=== PATIENT | female | born 1940 | race Caucasian/White ===

== ENCOUNTER 2023-08-26 13:26 | Emergency (ER) | payer MEDICARE, MEDICAID ==
[~2023-08-26] VITALS: Ht 154.9 cm; Wt 83.0 kg
[2023-08-26 13:30] VITALS: TEMP 98.6
[2023-08-26 17:02] LABS: BASOPHILS % (AUTO) 0.9 % (0-1); EOSINOPHILS % (AUTO) 0.9 % (0-6); HEMATOCRIT 35.9 % (35.0-45.0); HEMOGLOBIN 12.4 g/dl (12.0-16.0); LYMPHOCYTES # (AUTO) 0.5 X10'3 (1.1-4.8); MEAN CORPUSCULAR HEMOGLOBIN 36.8 PG (27.0-31.0); MEAN CORPUSCULAR HGB CONC 34.4 g/dL (33.0-36.5); MEAN CORPUSCULAR VOLUME 106.8 FL (78-98); MEAN PLATELET VOLUME 6.8 FL (7.4-10.4); MONOCYTES # (AUTO) 0.3 X10'3 (0-0.9); MONOCYTES % (AUTO) 5.8 % (2-12); NEUTROPHILS # (AUTO) 4.2 X10'3 (1.8-7.7); NEUTROPHILS % (AUTO) 82.4 % (42-75); PLATELET COUNT 432 X10'3 (140-440); RED BLOOD COUNT 3.36 X10'6 (4.20-5.60); WHITE BLOOD COUNT 5.1 X10'3 (4.5-11.0)
[2023-08-26 17:18] LABS: ALANINE AMINOTRANSFERASE 19 U/L (12-78); ALKALINE PHOSPHATASE 64 IU/L (46-116); ANION GAP 3 (8-16); ASPARTATE AMINO TRANSFERASE 22 U/L (10-37); BILIRUBIN,TOTAL 0.4 MG/DL (0.1-1.0); BLOOD UREA NITROGEN 18 MG/DL (7-18); BUN/CREATININE RATIO 28.6 (10.0-20.0); CALCIUM 8.6 MG/DL (8.5-10.1); CHLORIDE 98 MMOL/L (99-107); CREATININE 0.63 MG/DL (0.40-0.90); GLUCOSE 102 MG/DL (70-104); LIPASE 37 U/L (16-77); POTASSIUM 4.3 MMOL/L (3.5-5.1); SODIUM 130 MMOL/L (135-145); TOTAL CARBON DIOXIDE 29.3 MMOL/L (24-32); eCRCL 51 ML/MIN; eGFR 90 ML/MIN
[2023-08-26] MEDS ORDERED: normal saline 1000ml 1,000 ML IV ONE (18:10)
[2023-08-26] MEDS ORDERED: MAGN296S89 PO (18:26)
[2023-08-26 19:07] VITALS: BP 151/76; PULSE 70; RESP 15; O2SAT 97
== END 2023-08-26 19:46 | disposition home or self-care (01) ==
LOC: ER 13:27
DX: K59.00 Constipation, unspecified (principal)
CPT/HCPCS: 36415; 80053; 83690; 85025; 96360; 99283; J7030

== ENCOUNTER 2024-03-10 16:08 | Outpatient (CLI) | payer MEDICARE, MEDICAID ==
[~2024-03-10 16:08] MED LIST: HYDR-3964 PO; LEVO750T68 PO
[2024-03-10 16:43] LABS: BASOPHILS % (AUTO) 0.4 % (0-1); EOSINOPHILS % (AUTO) 0.6 % (0-6); HEMATOCRIT 26.9 % (35.0-45.0); HEMOGLOBIN 8.9 g/dl (12.0-16.0); LYMPHOCYTES # (AUTO) 0.5 X10'3 (1.1-4.8); LYMPHOCYTES % (AUTO) 7.6 % (21-51); MEAN CORPUSCULAR HEMOGLOBIN 30.3 PG (27.0-31.0); MEAN PLATELET VOLUME 6.3 FL (7.4-10.4); MONOCYTES # (AUTO) 0.4 X10'3 (0-0.9); NEUTROPHILS # (AUTO) 5.2 X10'3 (1.8-7.7); NEUTROPHILS % (AUTO) 84.4 % (42-75); PLATELET COUNT 368 X10'3 (140-440); RED BLOOD COUNT 2.92 X10'6 (4.20-5.60); RED CELL DISTRIBUTION WIDTH 20.2 % (11.5-14.5); WHITE BLOOD COUNT 6.2 X10'3 (4.5-11.0)
[2024-03-10 16:47] LABS: ALBUMIN 2.3 G/DL (3.4-5.0); ANION GAP 3 (8-16); BLOOD UREA NITROGEN 13 MG/DL (7-18); BUN/CREATININE RATIO 17.8 (10.0-20.0); CALCIUM 8.2 MG/DL (8.5-10.1); CHLORIDE 103 MMOL/L (99-107); CREATININE 0.73 MG/DL (0.40-0.90); GLUCOSE 113 MG/DL (70-104); POTASSIUM 4.1 MMOL/L (3.5-5.1); SODIUM 138 MMOL/L (135-145); TOTAL CARBON DIOXIDE 32.4 MMOL/L (24-32); eGFR 76 ML/MIN
[2024-03-10 17:17] LABS: ANISOCYTOSIS 3+; PLATELET ESTIMATE NORMAL; POIKILOCYTOSIS FEW
== END 2024-03-10 23:59 | disposition home or self-care (01) ==
LOC: RAD 16:08
PROVIDERS: ATTEND Registered Nurse
DX: D64.9 Anemia, unspecified (principal)
CPT/HCPCS: 36415; 80048; 85008; 85025

== ENCOUNTER 2024-03-27 19:56 | Inpatient (IN) | payer MEDICARE, MEDICAID ==
[~2024-03-27] VITALS: Ht 154.9 cm; Wt 79.0 kg
[2024-03-27 20:34] LABS: BILIRUBIN,URINE NEGATIVE (Neg); CLARITY,URINE CLOUDY (Clear); COLOR,URINE YELLOW (Yellow); GLUCOSE, URINE NEGATIVE (Neg); KETONES,URINE NEGATIVE (Neg); LEUKOCYTE ESTERASE ,URINE LARGE (Neg); NITRITES, URINE NEGATIVE (Neg); OCCULT BLOOD,URINE SMALL (Neg); PH,URINE 7.5 (4.8-8.0); PROTEIN,URINE 30 mg/dl (Neg); UROBILINOGEN,URINE 0.2 E.U/dL (0.2-1.0)
[2024-03-27 20:36] LABS: PRO BRAIN NATRIURETIC PEPTIDE 1375 PG/ML (0-450)
[2024-03-27 20:50] LABS: BASOPHILS # (AUTO) 0.1 X10'3 (0-0.2); BASOPHILS % (AUTO) 0.8 % (0-1); EOSINOPHILS # (AUTO) 0.1 X10'3 (0-0.9); EOSINOPHILS % (AUTO) 0.6 % (0-6); HEMATOCRIT 27.5 % (35.0-45.0); HEMOGLOBIN 8.7 g/dl (12.0-16.0); LYMPHOCYTES # (AUTO) 0.8 X10'3 (1.1-4.8); LYMPHOCYTES % (AUTO) 4.4 % (21-51); MEAN CORPUSCULAR HEMOGLOBIN 28.5 PG (27.0-31.0); MEAN CORPUSCULAR HGB CONC 31.7 g/dL (33.0-36.5); MEAN CORPUSCULAR VOLUME 89.8 FL (78-98); MEAN PLATELET VOLUME 6.8 FL (7.4-10.4); MONOCYTES # (AUTO) 0.8 X10'3 (0-0.9); MONOCYTES % (AUTO) 4.8 % (2-12); NEUTROPHILS # (AUTO) 15.9 X10'3 (1.8-7.7); NEUTROPHILS % (AUTO) 89.4 % (42-75); PLATELET COUNT 517 X10'3 (140-440); RED BLOOD COUNT 3.06 X10'6 (4.20-5.60); RED CELL DISTRIBUTION WIDTH 17.4 % (11.5-14.5); WHITE BLOOD COUNT 17.8 X10'3 (4.5-11.0)
[2024-03-27 20:54] LABS: UA COLLECTION TYPE FOLEY CATH
[2024-03-27 21:00] LABS: BACTERIA,URINE 2+ /HPF (Neg); SQUAMOUS EPITHELIAL CELL,UR FEW /LPF (FEW); TRANSITIONAL EPI CELLS,URINE FEW /HPF; WBC,URINE TNTC /HPF (0-4)
[2024-03-27 21:01] LABS: AMORPHOUS PHOSPHATES 2+; WBC CLUMPS,URINE MODERATE /HPF (NEGATIVE)
[2024-03-27 22:35] LABS: ALANINE AMINOTRANSFERASE 12 U/L (12-78); ALBUMIN 1.8 G/DL (3.4-5.0); ALBUMIN/GLOBULIN RATIO 0.4 (1.1-1.5); ALKALINE PHOSPHATASE 177 IU/L (46-116); ANION GAP 10 (8-16); ASPARTATE AMINO TRANSFERASE 20 U/L (10-37); BILIRUBIN,TOTAL 0.3 MG/DL (0.1-1.0); BLOOD UREA NITROGEN 34 MG/DL (7-18); BUN/CREATININE RATIO 42.5 (10.0-20.0); CALCIUM 8.8 MG/DL (8.5-10.1); CHLORIDE 95 MMOL/L (99-107); GLUCOSE 97 MG/DL (70-104); SODIUM 127 MMOL/L (135-145); TOTAL CARBON DIOXIDE 22.5 MMOL/L (24-32); TOTAL PROTEIN 5.9 G/DL (6.4-8.2); eCRCL 40 ML/MIN; eGFR 69 ML/MIN
[2024-03-27 22:36] LABS: POTASSIUM 5.5 MMOL/L (3.5-5.1)
[2024-03-27] MEDS ORDERED: iohexol 300mg/ml 100ml inj. ONE (22:41)
[2024-03-27] MEDS: CefTRIAXone 2gm/D5W 50ml BAG 50 ML IV ONE (23:44)
[2024-03-27] MEDS: normal saline 1000ml 1,000 ML IV ONE (23:44)
[2024-03-28] MEDS: piperacillin/tazo 3.375gm/50ml 50 ML IV ONE
[2024-03-28] MEDS: acetaminophen 325mg tablet PO ONE (00:49)
[2024-03-28] MEDS ORDERED: ondansetron/PF 4mg/2ml inj IV PRN (01:45)
[2024-03-28] MEDS ORDERED: potassium Cl 40MEQ/1/2NS 520ml 520 ML IV PRN (01:45)
[2024-03-28] MEDS ORDERED: mag hydrox/Alum hydrox/simeth 30ml oral suspension PO PRN (01:45)
[2024-03-28] MEDS ORDERED: potassium Cl 20 mEq SR tablet PO PRN ×2 (01:45)
[2024-03-28] MEDS ORDERED: magnesium sulf-water 4G/100mL 100 ML IV PRN (01:45)
[2024-03-28] MEDS ORDERED: magnesium sulf-water 2g/50mL 50 ML IV PRN (01:45)
[2024-03-28] MEDS ORDERED: acetaminophen 325mg tablet PO PRN (01:45)
[2024-03-28] MEDS ORDERED: magnesium Cl slow-release 64mg tablet PO PRN (01:45)
[2024-03-28] MEDS ORDERED: ONDA-243 PO (02:04)
[2024-03-28] MEDS ORDERED: LISI40TA13 PO (02:04)
[2024-03-28] MEDS ORDERED: HYDR-3965 PO (02:04)
[2024-03-28] MEDS ORDERED: FURO20TA4 PO (02:04)
[2024-03-28] MEDS ORDERED: DOCU-392 PO (02:06)
[2024-03-28] MEDS ORDERED: AMLO10TA13 PO (02:06)
[2024-03-28] MEDS ORDERED: MECL-302 PO (02:06)
[2024-03-28] MEDS ORDERED: METO50TA17 PO (02:07)
[2024-03-28] MEDS: CALCIUM GLUC 1gm/50ml NACL,iso 50 ML IV ONE (02:47)
[2024-03-28] MEDS: normal saline 1000ml 1,000 ML IV SCH (02:47)
[2024-03-28 03:06] LABS: MAGNESIUM 1.8 MG/DL (1.5-2.4); POTASSIUM 4.7 MMOL/L (3.5-5.1)
[2024-03-28] MEDS: K and/or MAG REPLACEMENT MC SCH (07:55)
[2024-03-28] MEDS: enoxaparin 40mg/0.4ml syringe SUBCUT SCH (08:00)
[2024-03-28] MEDS: piperacillin/tazo 3.375gm/50ml 50 ML IV SCH (08:04)
[2024-03-28] MEDS: HYDROcodone/acetaminophen 5mg/325mg tablet PO PRN (10:40)
[2024-03-28] MEDS ORDERED: GABA-530 PO (13:26)
[2024-03-28] MEDS: acetaminophen 325mg tablet PO PRN (14:13)
[2024-03-28 20:00] VITALS: BP 129/61; PULSE 95; RESP 16; TEMP 97.9; O2SAT 94
[2024-03-28] MEDS ORDERED: MULT-1074 PO (20:40)
[2024-03-28] MEDS ORDERED: LISI2.5T14 PO (20:40)
[2024-03-28] MEDS ORDERED: POLY119P2 PO (20:40)
[2024-03-28 22:00] VITALS: BP 135/45; PULSE 109; RESP 18; TEMP 99.2; O2SAT 96
[2024-03-28] MEDS ORDERED: CefTRIAXone/D5W-Rocephin 1gm 50 ML IV SCH (22:00)
[2024-03-29] VITALS (7 sets, daily range): BP systolic 126–157; BP diastolic 51–99; PULSE 73–106; RESP 16–21; TEMP 97.3–98.6; O2SAT 91–97
[2024-03-29 07:18] LABS: ALBUMIN 1.6 G/DL (3.4-5.0); ANION GAP 7 (8-16); BLOOD UREA NITROGEN 16 MG/DL (7-18); BUN/CREATININE RATIO 29.1 (10.0-20.0); CALCIUM 8.4 MG/DL (8.5-10.1); CHLORIDE 104 MMOL/L (99-107); CREATININE 0.55 MG/DL (0.40-0.90); GLUCOSE 83 MG/DL (70-104); MAGNESIUM 1.8 MG/DL (1.5-2.4); PHOSPHORUS 3.8 MG/DL (2.3-4.5); SODIUM 136 MMOL/L (135-145); TOTAL CARBON DIOXIDE 24.6 MMOL/L (24-32); eCRCL 58 ML/MIN; eGFR > 90 ML/MIN
[2024-03-29 07:19] LABS: POTASSIUM 4.6 MMOL/L (3.5-5.1)
[2024-03-29 08:37] LABS: BASOPHILS % (AUTO) 0.2 % (0-1); EOSINOPHILS # (AUTO) 0.1 X10'3 (0-0.9); EOSINOPHILS % (AUTO) 0.9 % (0-6); HEMATOCRIT 24.3 % (35.0-45.0); LYMPHOCYTES # (AUTO) 0.4 X10'3 (1.1-4.8); LYMPHOCYTES % (AUTO) 3.8 % (21-51); MEAN CORPUSCULAR HEMOGLOBIN 29.5 PG (27.0-31.0); MEAN CORPUSCULAR VOLUME 89.2 FL (78-98); MEAN PLATELET VOLUME 6.2 FL (7.4-10.4); MONOCYTES # (AUTO) 0.5 X10'3 (0-0.9); MONOCYTES % (AUTO) 5.2 % (2-12); NEUTROPHILS # (AUTO) 9.2 X10'3 (1.8-7.7); NEUTROPHILS % (AUTO) 89.9 % (42-75); PLATELET COUNT 478 X10'3 (140-440); RED BLOOD COUNT 2.73 X10'6 (4.20-5.60); RED CELL DISTRIBUTION WIDTH 17.5 % (11.5-14.5); WHITE BLOOD COUNT 10.2 X10'3 (4.5-11.0)
[2024-03-29] MEDS: metoprolol tartrate 50mg tablet PO SCH (20:51)
[2024-03-29] MEDS: gabapentin 100mg capsule PO SCH (20:52)
[2024-03-30] VITALS (8 sets, daily range): BP systolic 107–151; BP diastolic 52–57; PULSE 74–83; RESP 13–22; TEMP 97.5–98.4; O2SAT 94–99
[2024-03-30 07:10] LABS: ALBUMIN 1.6 G/DL (3.4-5.0); ANION GAP 7 (8-16); BLOOD UREA NITROGEN 8 MG/DL (7-18); BUN/CREATININE RATIO 14.3 (10.0-20.0); CHLORIDE 104 MMOL/L (99-107); CREATININE 0.56 MG/DL (0.40-0.90); GLUCOSE 91 MG/DL (70-104); MAGNESIUM 1.7 MG/DL (1.5-2.4); SODIUM 138 MMOL/L (135-145); TOTAL CARBON DIOXIDE 26.9 MMOL/L (24-32); eCRCL 57 ML/MIN; eGFR > 90 ML/MIN
[2024-03-30 07:37] LABS: PHOSPHORUS 3.5 MG/DL (2.3-4.5); POTASSIUM 4.5 MMOL/L (3.5-5.1)
[2024-03-30] MEDS: multivitamins, therapeutics tablet PO SCH (07:46)
[2024-03-30] MEDS: amLODIPine 5mg tablet PO SCH (07:46)
[2024-03-30] MEDS: lisinopril 2.5mg tablet PO SCH (07:47)
[2024-03-30 09:23] LABS: BASOPHILS % (AUTO) 0.4 % (0-1); EOSINOPHILS # (AUTO) 0.1 X10'3 (0-0.9); EOSINOPHILS % (AUTO) 0.9 % (0-6); HEMATOCRIT 26.1 % (35.0-45.0); HEMOGLOBIN 8.8 g/dl (12.0-16.0); LYMPHOCYTES # (AUTO) 0.4 X10'3 (1.1-4.8); LYMPHOCYTES % (AUTO) 4.3 % (21-51); MEAN CORPUSCULAR HEMOGLOBIN 29.9 PG (27.0-31.0); MEAN CORPUSCULAR HGB CONC 33.7 g/dL (33.0-36.5); MEAN CORPUSCULAR VOLUME 88.8 FL (78-98); MEAN PLATELET VOLUME 6.3 FL (7.4-10.4); MONOCYTES # (AUTO) 0.4 X10'3 (0-0.9); MONOCYTES % (AUTO) 4.5 % (2-12); NEUTROPHILS # (AUTO) 8.9 X10'3 (1.8-7.7); NEUTROPHILS % (AUTO) 89.9 % (42-75); PLATELET COUNT 517 X10'3 (140-440); RED BLOOD COUNT 2.94 X10'6 (4.20-5.60); RED CELL DISTRIBUTION WIDTH 17.6 % (11.5-14.5); WHITE BLOOD COUNT 9.9 X10'3 (4.5-11.0)
[2024-03-30 09:30] LABS: INR 1.2 INR; PROTHROMBIN TIME 12.7 SECONDS (9.0-12.0)
[2024-03-30] MEDS: docusate sod 100mg capsule PO SCH (20:58)
[2024-03-30] MEDS: sennosides/docusate sodium tablet PO SCH (20:58)
[2024-03-30] MEDS: polyethylene glycol 3350 17gm powd pack PO SCH (20:59)
[2024-03-31] VITALS (7 sets, daily range): BP systolic 128–146; BP diastolic 48–64; PULSE 72–87; RESP 16–19; TEMP 97–98.4; O2SAT 94–98
[2024-03-31 07:46] LABS: INR 1.3 INR; PROTHROMBIN TIME 12.9 SECONDS (9.0-12.0)
[2024-03-31 08:15] LABS: ALBUMIN 1.8 G/DL (3.4-5.0); ANION GAP 6 (8-16); BLOOD UREA NITROGEN 11 MG/DL (7-18); CALCIUM 8.9 MG/DL (8.5-10.1); CHLORIDE 104 MMOL/L (99-107); CREATININE 0.61 MG/DL (0.40-0.90); GLUCOSE 102 MG/DL (70-104); MAGNESIUM 1.7 MG/DL (1.5-2.4); PHOSPHORUS 3.4 MG/DL (2.3-4.5); SODIUM 139 MMOL/L (135-145); eCRCL 53 ML/MIN; eGFR > 90 ML/MIN
[2024-03-31 09:55] LABS: BASOPHILS # (AUTO) 0.1 X10'3 (0-0.2); BASOPHILS % (AUTO) 0.9 % (0-1); EOSINOPHILS # (AUTO) 0.1 X10'3 (0-0.9); EOSINOPHILS % (AUTO) 0.8 % (0-6); HEMATOCRIT 26.4 % (35.0-45.0); HEMOGLOBIN 8.7 g/dl (12.0-16.0); LYMPHOCYTES # (AUTO) 0.5 X10'3 (1.1-4.8); LYMPHOCYTES % (AUTO) 4.8 % (21-51); MEAN CORPUSCULAR HEMOGLOBIN 29.6 PG (27.0-31.0); MEAN CORPUSCULAR VOLUME 89.5 FL (78-98); MEAN PLATELET VOLUME 6.4 FL (7.4-10.4); MONOCYTES # (AUTO) 0.3 X10'3 (0-0.9); MONOCYTES % (AUTO) 3.7 % (2-12); NEUTROPHILS # (AUTO) 8.5 X10'3 (1.8-7.7); NEUTROPHILS % (AUTO) 89.8 % (42-75); PLATELET COUNT 531 X10'3 (140-440); RED BLOOD COUNT 2.95 X10'6 (4.20-5.60); RED CELL DISTRIBUTION WIDTH 17.3 % (11.5-14.5); WHITE BLOOD COUNT 9.4 X10'3 (4.5-11.0)
[2024-04-01 02:00] VITALS: BP 135/45; PULSE 77; RESP 16; TEMP 97.1; O2SAT 96
[2024-04-01 08:00] VITALS: RESP 18; O2SAT 96
[2024-04-01 08:00] LABS: BASOPHILS % (AUTO) 0 % (0-1); EOSINOPHILS # (AUTO) 0.1 X10'3 (0-0.9); EOSINOPHILS % (AUTO) 1.6 % (0-6); HEMATOCRIT 26.1 % (35.0-45.0); HEMOGLOBIN 8.3 g/dl (12.0-16.0); LYMPHOCYTES # (AUTO) 0.6 X10'3 (1.1-4.8); LYMPHOCYTES % (AUTO) 5.8 % (21-51); MEAN CORPUSCULAR HEMOGLOBIN 29.1 PG (27.0-31.0); MEAN CORPUSCULAR VOLUME 91.1 FL (78-98); MEAN PLATELET VOLUME 6.8 FL (7.4-10.4); MONOCYTES # (AUTO) 0.4 X10'3 (0-0.9); MONOCYTES % (AUTO) 3.9 % (2-12); NEUTROPHILS # (AUTO) 8.5 X10'3 (1.8-7.7); NEUTROPHILS % (AUTO) 88.7 % (42-75); PLATELET COUNT 509 X10'3 (140-440); RED BLOOD COUNT 2.86 X10'6 (4.20-5.60); RED CELL DISTRIBUTION WIDTH 17.9 % (11.5-14.5); WHITE BLOOD COUNT 9.5 X10'3 (4.5-11.0)
[2024-04-01 08:07] LABS: INR 1.2 INR
[2024-04-01 08:17] LABS: ALBUMIN 1.7 G/DL (3.4-5.0); ANION GAP 4 (8-16); BLOOD UREA NITROGEN 15 MG/DL (7-18); BUN/CREATININE RATIO 24.6 (10.0-20.0); CALCIUM 8.5 MG/DL (8.5-10.1); CHLORIDE 105 MMOL/L (99-107); CREATININE 0.61 MG/DL (0.40-0.90); GLUCOSE 97 MG/DL (70-104); MAGNESIUM 1.4 MG/DL (1.5-2.4); PHOSPHORUS 3.3 MG/DL (2.3-4.5); POTASSIUM 4.6 MMOL/L (3.5-5.1); SODIUM 138 MMOL/L (135-145); TOTAL CARBON DIOXIDE 29.3 MMOL/L (24-32); eCRCL 53 ML/MIN; eGFR > 90 ML/MIN
[2024-04-01 08:31] VITALS: BP_SYST 143; PULSE 74
[2024-04-01 12:18] VITALS: RESP 18
[2024-04-01] MEDS ORDERED: AMOX-117 PO (14:27)
[2024-04-01] MEDS ORDERED: magnesium oxide 400mg tablet PO ONE (15:30)
== END 2024-04-01 16:30 | disposition home health service (06) | DRG 871 ==
LOC: ER 19:58 → ED HOLD 03-28 01:48 → PCU 3S 03-28 20:36
PROVIDERS: ADMIT Surgery Surgical Critical Care; ATTEND Family Medicine
PROC: BW211ZZ Computerized Tomography (CT Scan) of Abdomen and Pelvis using Low Osmolar Contrast (ICD-10-PCS; principal; 2024-03-27)
DX: A41.9 Sepsis, unspecified organism (principal); G93.41 Metabolic encephalopathy; N39.0 Urinary tract infection, site not specified; E87.1 Hypo-osmolality and hyponatremia; G47.33 Obstructive sleep apnea (adult) (pediatric); N13.9 Obstructive and reflux uropathy, unspecified; R33.9 Retention of urine, unspecified; E78.00 Pure hypercholesterolemia, unspecified; D64.9 Anemia, unspecified; E87.5 Hyperkalemia; I10 Essential (primary) hypertension; Z88.1 Allergy status to other antibiotic agents; Z79.899 Other long term (current) drug therapy; Z85.44 Personal history of malignant neoplasm of other female genital organs; Z92.3 Personal history of irradiation
CPT/HCPCS: 36415; 71045; 74018; 74177; 80048; 80053; 81001; 83605; 83735; 83880; 84100; 84132; 84145; 84484; 85025; 85610; 87040; 87077; 87081; 87088; 87186; 87811; 93005; 96365; 97110; 97116; 97161; 97530; 99285; A6213; A6250; A6449; G0378; J0610; J0696; J1650; J2543; J7030; Q9967

== ENCOUNTER 2024-04-10 12:40 | Emergency (ER) | payer MEDICARE, MEDICAID ==
[~2024-04-10] VITALS: Ht 156.2 cm; Wt 72.7 kg
[~2024-04-10 12:40] MED LIST changes: +AMLO10TA13 PO; +DOCU-392 PO; +GABA-530 PO; -HYDR-3964 PO; +HYDR-3965 PO; -LEVO750T68 PO; +LISI2.5T14 PO; +METO50TA17 PO; +MULT-1074 PO; +POLY119P2 PO
[2024-04-10 12:54] VITALS: TEMP 98
--- NOTE | 2024-04-10 13:34 | NUR ---
present with for vaginal exam. Pt has blood present of thompson and pull up.
[2024-04-10 13:49] LABS: BILIRUBIN,URINE NEGATIVE (Neg); CLARITY,URINE CLOUDY (Clear); COLOR,URINE YELLOW (Yellow); GLUCOSE, URINE NEGATIVE (Neg); KETONES,URINE NEGATIVE (Neg); LEUKOCYTE ESTERASE ,URINE LARGE (Neg); NITRITES, URINE NEGATIVE (Neg); OCCULT BLOOD,URINE MODERATE (Neg); PROTEIN,URINE 100 mg/dl (Neg); UROBILINOGEN,URINE 0.2 E.U/dL (0.2-1.0)
[2024-04-10 13:51] LABS: UA COLLECTION TYPE FOLEY CATH
[2024-04-10 14:02] LABS: ALANINE AMINOTRANSFERASE 9 U/L (12-78); ALBUMIN 1.8 G/DL (3.4-5.0); ALBUMIN/GLOBULIN RATIO 0.5 (1.1-1.5); ALKALINE PHOSPHATASE 82 IU/L (46-116); ANION GAP 6 (8-16); ASPARTATE AMINO TRANSFERASE 11 U/L (10-37); BILIRUBIN,TOTAL 0.3 MG/DL (0.1-1.0); BLOOD UREA NITROGEN 20 MG/DL (7-18); CALCIUM 8.7 MG/DL (8.5-10.1); CHLORIDE 98 MMOL/L (99-107); CREATININE 0.77 MG/DL (0.40-0.90); GLUCOSE 100 MG/DL (70-104); POTASSIUM 4.8 MMOL/L (3.5-5.1); SODIUM 132 MMOL/L (135-145); TOTAL CARBON DIOXIDE 27.6 MMOL/L (24-32); TOTAL PROTEIN 5.4 G/DL (6.4-8.2); eCRCL 43 ML/MIN; eGFR 72 ML/MIN
[2024-04-10 14:05] LABS: BACTERIA,URINE 2+ /HPF (Neg); MUCUS STRANDS NONE SEEN /LPF (Neg); SQUAMOUS EPITHELIAL CELL,UR NONE SEEN /LPF (FEW); WBC CLUMPS,URINE MANY /HPF (NEGATIVE); WBC,URINE TNTC /HPF (0-4)
[2024-04-10 14:53] LABS: BASOPHILS % (AUTO) 0.2 % (0-1); EOSINOPHILS % (AUTO) 0.4 % (0-6); HEMATOCRIT 26.2 % (35.0-45.0); HEMOGLOBIN 8.3 g/dl (12.0-16.0); LYMPHOCYTES # (AUTO) 0.4 X10'3 (1.1-4.8); LYMPHOCYTES % (AUTO) 3.9 % (21-51); MEAN CORPUSCULAR HEMOGLOBIN 28.7 PG (27.0-31.0); MEAN CORPUSCULAR HGB CONC 31.8 g/dL (33.0-36.5); MEAN CORPUSCULAR VOLUME 90.3 FL (78-98); MEAN PLATELET VOLUME 6.8 FL (7.4-10.4); MONOCYTES # (AUTO) 0.6 X10'3 (0-0.9); MONOCYTES % (AUTO) 5.6 % (2-12); NEUTROPHILS # (AUTO) 9.5 X10'3 (1.8-7.7); NEUTROPHILS % (AUTO) 89.9 % (42-75); PLATELET COUNT 494 X10'3 (140-440); RED CELL DISTRIBUTION WIDTH 18.8 % (11.5-14.5); WHITE BLOOD COUNT 10.6 X10'3 (4.5-11.0)
[2024-04-10 15:02] LABS: INR 1.2 INR; PROTHROMBIN TIME 12.3 SECONDS (9.0-12.0)
[2024-04-10 15:47] LABS: ANISOCYTOSIS 2+; PLATELET ESTIMATE INCREASED; POLYCHROMASIA 1+
[2024-04-10 15:48] LABS: BURR CELLS FEW; ELLIPTOCYTES FEW
[2024-04-10] MEDS: cephalexin 500mg capsule PO ONE (16:06)
--- NOTE | 2024-04-10 16:06 | NUR ---
pt daughter at bedside, spoke with about antibiotic. Pt changed, new pull up.
[2024-04-10] MEDS ORDERED: CEFU500T66 PO (16:19)
[2024-04-10] MEDS: cefuroxime axetil 250mg tablet PO ONE (16:40)
[2024-04-10 16:48] VITALS: BP 120/49; PULSE 81; RESP 18; O2SAT 92
== END 2024-04-10 16:40 | disposition home or self-care (01) ==
LOC: ER 12:41
DX: N39.0 Urinary tract infection, site not specified (principal); N93.8 Other specified abnormal uterine and vaginal bleeding; E78.00 Pure hypercholesterolemia, unspecified; I10 Essential (primary) hypertension; Z88.1 Allergy status to other antibiotic agents; Z79.899 Other long term (current) drug therapy
CPT/HCPCS: 36415; 80053; 81001; 85008; 85025; 85610; 87088; 99285; A5200

== ENCOUNTER 2024-04-16 10:46 | Inpatient (IN) | payer MEDICARE, MEDICAID ==
[~2024-04-16] VITALS: Ht 152.4 cm; Wt 75.6 kg
[~2024-04-16 10:46] MED LIST changes: +CEFU500T66 PO
[2024-04-16 12:15] LABS: BILIRUBIN,URINE NEGATIVE (Neg); CLARITY,URINE CLOUDY (Clear); COLOR,URINE YELLOW (Yellow); GLUCOSE, URINE NEGATIVE (Neg); KETONES,URINE NEGATIVE (Neg); LEUKOCYTE ESTERASE ,URINE MODERATE (Neg); NITRITES, URINE NEGATIVE (Neg); OCCULT BLOOD,URINE TRACE-INTACT (Neg); PROTEIN,URINE 100 mg/dl (Neg); UROBILINOGEN,URINE 0.2 E.U/dL (0.2-1.0)
[2024-04-16 12:25] LABS: UA COLLECTION TYPE FOLEY CATH
[2024-04-16 12:26] LABS: BACTERIA,URINE FEW /HPF (Neg); MUCUS STRANDS FEW /LPF (Neg); SQUAMOUS EPITHELIAL CELL,UR NONE SEEN /LPF (FEW); WBC,URINE TNTC /HPF (0-4); YEAST MANY /HPF (NEGATIVE)
[2024-04-16] MEDS ORDERED: CEFU500T66 PO (12:59)
[2024-04-16] MEDS ORDERED: LACT1CAP26 PO (13:01)
[2024-04-16] MEDS ORDERED: MELA5CAP PO (13:02)
[2024-04-16] MEDS ORDERED: HYDR500C2 PO (13:04)
[2024-04-16] MEDS ORDERED: MAGN100T PO (13:04)
[2024-04-16 13:10] LABS: BASOPHILS % (AUTO) 0.4 % (0-1); EOSINOPHILS # (AUTO) 0.1 X10'3 (0-0.9); HEMOGLOBIN 7.4 g/dl (12.0-16.0); LYMPHOCYTES # (AUTO) 0.4 X10'3 (1.1-4.8); MEAN PLATELET VOLUME 6.5 FL (7.4-10.4); RED CELL DISTRIBUTION WIDTH 17.9 % (11.5-14.5)
[2024-04-16 13:12] LABS: EOSINOPHILS % (AUTO) 0.7 % (0-6); HEMATOCRIT 22.8 % (35.0-45.0); LYMPHOCYTES % (AUTO) 3.4 % (21-51); MEAN CORPUSCULAR HEMOGLOBIN 28.8 PG (27.0-31.0); MEAN CORPUSCULAR HGB CONC 32.6 g/dL (33.0-36.5); MEAN CORPUSCULAR VOLUME 88.1 FL (78-98); MONOCYTES # (AUTO) 0.7 X10'3 (0-0.9); MONOCYTES % (AUTO) 5.7 % (2-12); NEUTROPHILS # (AUTO) 11.1 X10'3 (1.8-7.7); NEUTROPHILS % (AUTO) 89.8 % (42-75); PLATELET COUNT 625 X10'3 (140-440); RED BLOOD COUNT 2.59 X10'6 (4.20-5.60); WHITE BLOOD COUNT 12.3 X10'3 (4.5-11.0)
[2024-04-16] MEDS: normal saline 1000ML IV soln IV ONE (13:16)
[2024-04-16] MEDS: CefTRIAXone 2gm/D5W 50ml BAG 50 ML IV ONE (13:16)
[2024-04-16 13:22] LABS: ALBUMIN 1.7 G/DL (3.4-5.0); ANION GAP 8 (8-16); BLOOD UREA NITROGEN 30 MG/DL (7-18); BUN/CREATININE RATIO 37.5 (10.0-20.0); CALCIUM 8.3 MG/DL (8.5-10.1); CHLORIDE 95 MMOL/L (99-107); GLUCOSE 94 MG/DL (70-104); MAGNESIUM 1.8 MG/DL (1.5-2.4); POTASSIUM 5.3 MMOL/L (3.5-5.1); SODIUM 130 MMOL/L (135-145); eCRCL 50 ML/MIN; eGFR 69 ML/MIN
[2024-04-16] MEDS: diphenhydrAMINE 50 mg/ml inj IV ONE (13:48)
[2024-04-16] MEDS: metoclopramide 5 mg/ml inj IV ONE (13:48)
[2024-04-16] MEDS ORDERED: magnesium Cl slow-release 64mg tablet PO PRN (14:30)
[2024-04-16] MEDS ORDERED: potassium Cl 40MEQ/1/2NS 520ml 520 ML IV PRN (14:30)
[2024-04-16] MEDS ORDERED: potassium Cl 20 mEq SR tablet PO PRN ×2 (14:30)
[2024-04-16] MEDS ORDERED: magnesium sulf-water 2g/50mL 50 ML IV PRN (14:30)
[2024-04-16] MEDS ORDERED: magnesium sulf-water 4G/100mL 100 ML IV PRN (14:30)
[2024-04-16] MEDS ORDERED: acetaminophen 650mg rectal suppository RC PRN (14:30)
[2024-04-16] MEDS: CefTRIAXone/D5W-Rocephin 1gm 50 ML IV SCH (15:08)
[2024-04-16] MEDS: normal saline 1000ml 1,000 ML IV SCH (15:23)
[2024-04-16 17:07] LABS: % IRON SATURATION 10 % (11-46); IRON 11 UG/DL (49-151); TOTAL IRON BINDING CAPACITY 112 UG/DL (259-388)
[2024-04-16 18:00] VITALS: BP 140/41; PULSE 94; RESP 13; TEMP 98.4; O2SAT 95
[2024-04-16] MEDS: K and/or MAG REPLACEMENT MC SCH (20:00)
[2024-04-16 22:00] VITALS: BP 132/45; PULSE 98; RESP 16; TEMP 98.1; O2SAT 98
[2024-04-17] VITALS (7 sets, daily range): BP systolic 113–141; BP diastolic 41–53; PULSE 88–100; RESP 14–18; TEMP 97.6–99.3; O2SAT 92–98
[2024-04-17] MEDS: HYDROcodone/acetaminophen 5mg/325mg tablet PO ONE (04:09)
[2024-04-17 06:50] LABS: BASOPHILS # (AUTO) 0.1 X10'3 (0-0.2); BASOPHILS % (AUTO) 0.6 % (0-1); EOSINOPHILS % (AUTO) 0.4 % (0-6); HEMATOCRIT 22.5 % (35.0-45.0); HEMOGLOBIN 7.1 g/dl (12.0-16.0); LYMPHOCYTES # (AUTO) 0.4 X10'3 (1.1-4.8); LYMPHOCYTES % (AUTO) 3.5 % (21-51); MEAN CORPUSCULAR HEMOGLOBIN 27.6 PG (27.0-31.0); MEAN CORPUSCULAR HGB CONC 31.6 g/dL (33.0-36.5); MEAN CORPUSCULAR VOLUME 87.4 FL (78-98); MEAN PLATELET VOLUME 6.3 FL (7.4-10.4); MONOCYTES # (AUTO) 0.7 X10'3 (0-0.9); MONOCYTES % (AUTO) 5.5 % (2-12); NEUTROPHILS # (AUTO) 10.9 X10'3 (1.8-7.7); PLATELET COUNT 567 X10'3 (140-440); RED BLOOD COUNT 2.58 X10'6 (4.20-5.60); WHITE BLOOD COUNT 12.1 X10'3 (4.5-11.0)
[2024-04-17 07:07] LABS: ALBUMIN 1.5 G/DL (3.4-5.0); ANION GAP 10 (8-16); BLOOD UREA NITROGEN 25 MG/DL (7-18); BUN/CREATININE RATIO 35.7 (10.0-20.0); CALCIUM 8.5 MG/DL (8.5-10.1); CHLORIDE 103 MMOL/L (99-107); GLUCOSE 78 MG/DL (70-104); POTASSIUM 4.9 MMOL/L (3.5-5.1); SODIUM 137 MMOL/L (135-145); TOTAL CARBON DIOXIDE 24.4 MMOL/L (24-32); eCRCL 44 ML/MIN; eGFR 80 ML/MIN
[2024-04-17 15:53] LABS: D-DIMER 1.59 MG/L FEU (0-0.50)
[2024-04-17] MEDS ORDERED: iohexol 350MG/ML 100ml bottle IV ONE (17:05)
[2024-04-17] MEDS: HYDROmorphone inj. 0.5 MG/0.5 ML DISP.SYRIN IV PRN (17:28)
[2024-04-17] MEDS: simethicone 80mg chew tab PO PRN (20:11)
[2024-04-18] MEDS ORDERED: HYDROcodone/acetaminophen 5mg/325mg tablet PO PRN (02:30)
[2024-04-18 05:39] LABS: BASOPHILS % (AUTO) 0.4 % (0-1); EOSINOPHILS # (AUTO) 0.1 X10'3 (0-0.9); LYMPHOCYTES # (AUTO) 0.4 X10'3 (1.1-4.8); LYMPHOCYTES % (AUTO) 3.1 % (21-51); MEAN PLATELET VOLUME 6.4 FL (7.4-10.4); MONOCYTES # (AUTO) 0.6 X10'3 (0-0.9); NEUTROPHILS # (AUTO) 11.7 X10'3 (1.8-7.7)
[2024-04-18 05:40] LABS: ALBUMIN 1.5 G/DL (3.4-5.0); ANION GAP 6 (8-16); BLOOD UREA NITROGEN 24 MG/DL (7-18); BUN/CREATININE RATIO 34.8 (10.0-20.0); CALCIUM 8.2 MG/DL (8.5-10.1); CHLORIDE 106 MMOL/L (99-107); CREATININE 0.69 MG/DL (0.40-0.90); GLUCOSE 143 MG/DL (70-104); MAGNESIUM 1.9 MG/DL (1.5-2.4); POTASSIUM 4.6 MMOL/L (3.5-5.1); SODIUM 139 MMOL/L (135-145); TOTAL CARBON DIOXIDE 27.4 MMOL/L (24-32); eCRCL 44 ML/MIN; eGFR 81 ML/MIN
[2024-04-18 05:41] LABS: BASOPHILS # (AUTO) 0.1 X10'3 (0-0.2); EOSINOPHILS % (AUTO) 0.6 % (0-6); HEMATOCRIT 22.5 % (35.0-45.0); HEMOGLOBIN 7.2 g/dl (12.0-16.0); MEAN CORPUSCULAR HEMOGLOBIN 28.1 PG (27.0-31.0); MEAN CORPUSCULAR VOLUME 87.9 FL (78-98); MONOCYTES % (AUTO) 4.9 % (2-12); PLATELET COUNT 682 X10'3 (140-440); RED BLOOD COUNT 2.56 X10'6 (4.20-5.60); WHITE BLOOD COUNT 12.9 X10'3 (4.5-11.0)
[2024-04-18 06:00] VITALS: BP 139/46; PULSE 84; RESP 14; TEMP 97.9; O2SAT 98
[2024-04-18 09:15] VITALS: RESP 18; O2SAT 94
[2024-04-18 10:00] VITALS: BP 152/59; PULSE 70; RESP 18; TEMP 97.3; O2SAT 98
[2024-04-18] MEDS: HYDROcodone/acetaminophen 5mg/325mg tablet PO PRN (12:33)
[2024-04-18 18:00] VITALS: BP 158/58; PULSE 88; RESP 20; TEMP 98.3; O2SAT 97
[2024-04-18 20:00] VITALS: RESP 20; O2SAT 97
[2024-04-18 22:00] VITALS: BP 155/56; PULSE 86; RESP 18; TEMP 97.8; O2SAT 95
[2024-04-19] VITALS (8 sets, daily range): BP systolic 156–173; BP diastolic 53–70; PULSE 96–102; RESP 14–18; TEMP 97.9–98.9; O2SAT 95–98
[2024-04-19 05:38] LABS: EOSINOPHILS # (AUTO) 0.1 X10'3 (0-0.9); LYMPHOCYTES # (AUTO) 0.4 X10'3 (1.1-4.8); NEUTROPHILS % (AUTO) 90.6 % (42-75)
[2024-04-19 05:40] LABS: BASOPHILS % (AUTO) 0.3 % (0-1); HEMATOCRIT 22.2 % (35.0-45.0); HEMOGLOBIN 7.3 g/dl (12.0-16.0); LYMPHOCYTES % (AUTO) 3.6 % (21-51); MEAN CORPUSCULAR HEMOGLOBIN 28.9 PG (27.0-31.0); MEAN CORPUSCULAR HGB CONC 32.8 g/dL (33.0-36.5); MEAN PLATELET VOLUME 6.5 FL (7.4-10.4); MONOCYTES # (AUTO) 0.5 X10'3 (0-0.9); MONOCYTES % (AUTO) 4.5 % (2-12); NEUTROPHILS # (AUTO) 9.4 X10'3 (1.8-7.7); PLATELET COUNT 622 X10'3 (140-440); RED BLOOD COUNT 2.52 X10'6 (4.20-5.60); RED CELL DISTRIBUTION WIDTH 17.6 % (11.5-14.5); WHITE BLOOD COUNT 10.4 X10'3 (4.5-11.0)
[2024-04-19 05:50] LABS: ALBUMIN 1.6 G/DL (3.4-5.0); ANION GAP 5 (8-16); BLOOD UREA NITROGEN 18 MG/DL (7-18); BUN/CREATININE RATIO 35.3 (10.0-20.0); CALCIUM 8.4 MG/DL (8.5-10.1); CHLORIDE 106 MMOL/L (99-107); CREATININE 0.51 MG/DL (0.40-0.90); GLUCOSE 118 MG/DL (70-104); MAGNESIUM 1.6 MG/DL (1.5-2.4); POTASSIUM 4.5 MMOL/L (3.5-5.1); SODIUM 137 MMOL/L (135-145); TOTAL CARBON DIOXIDE 26.5 MMOL/L (24-32); eCRCL 60 ML/MIN; eGFR > 90 ML/MIN
[2024-04-19 08:13] LABS: ANISOCYTOSIS 1+; BURR CELLS FEW; ELLIPTOCYTES FEW; PLATELET ESTIMATE INCREASED; TEAR DROP CELLS FEW
[2024-04-19 08:14] LABS: POLYCHROMASIA FEW
[2024-04-19] MEDS: fluconazole 100mg tablet PO SCH (11:08)
[2024-04-19] MEDS: gabapentin 100mg capsule PO SCH (16:49)
[2024-04-19] MEDS ORDERED: polyethylene glycol 3350 17gm powd pack PO PRN (19:00)
[2024-04-19] MEDS: HYDROmorphone inj. 0.5 MG/0.5 ML DISP.SYRIN IV PRN (21:56)
[2024-04-20] VITALS (8 sets, daily range): BP systolic 101–160; BP diastolic 46–62; PULSE 71–114; RESP 13–18; TEMP 96.6–98.7; O2SAT 95–97
[2024-04-20] MEDS: acetaminophen 325mg tablet PO SCH (00:25)
[2024-04-20] MEDS: amLODIPine 5mg tablet PO ONE (03:02)
[2024-04-20 06:56] LABS: BASOPHILS # (AUTO) 0.1 X10'3 (0-0.2); BASOPHILS % (AUTO) 0.5 % (0-1); EOSINOPHILS # (AUTO) 0.1 X10'3 (0-0.9); HEMOGLOBIN 8.2 g/dl (12.0-16.0); LYMPHOCYTES # (AUTO) 0.5 X10'3 (1.1-4.8); MEAN PLATELET VOLUME 6.1 FL (7.4-10.4); MONOCYTES # (AUTO) 0.6 X10'3 (0-0.9)
[2024-04-20 06:59] LABS: EOSINOPHILS % (AUTO) 0.6 % (0-6); HEMATOCRIT 26.1 % (35.0-45.0); LYMPHOCYTES % (AUTO) 4.1 % (21-51); MEAN CORPUSCULAR HEMOGLOBIN 27.3 PG (27.0-31.0); MEAN CORPUSCULAR HGB CONC 31.4 g/dL (33.0-36.5); MEAN CORPUSCULAR VOLUME 87.2 FL (78-98); MONOCYTES % (AUTO) 5.4 % (2-12); NEUTROPHILS # (AUTO) 9.8 X10'3 (1.8-7.7); NEUTROPHILS % (AUTO) 89.4 % (42-75); PLATELET COUNT 672 X10'3 (140-440); RED BLOOD COUNT 2.99 X10'6 (4.20-5.60)
[2024-04-20 07:03] LABS: ALBUMIN 1.6 G/DL (3.4-5.0); ANION GAP 4 (8-16); BLOOD UREA NITROGEN 14 MG/DL (7-18); BUN/CREATININE RATIO 33.3 (10.0-20.0); CALCIUM 8.4 MG/DL (8.5-10.1); CHLORIDE 106 MMOL/L (99-107); CREATININE 0.42 MG/DL (0.40-0.90); GLUCOSE 106 MG/DL (70-104); MAGNESIUM 1.3 MG/DL (1.5-2.4); POTASSIUM 4.3 MMOL/L (3.5-5.1); SODIUM 136 MMOL/L (135-145); TOTAL CARBON DIOXIDE 26.5 MMOL/L (24-32); eCRCL 73 ML/MIN; eGFR > 90 ML/MIN
[2024-04-20] MEDS: metoprolol tartrate 50mg tablet PO SCH (07:29)
[2024-04-20] MEDS: lisinopril 2.5mg tablet PO SCH (07:30)
[2024-04-20 08:09] LABS: ANISOCYTOSIS 1+; PLATELET ESTIMATE INCREASED; TOTAL CELLS COUNTED 100
[2024-04-20] MEDS ORDERED: potassium Cl 20 mEq SR tablet PO PRN ×2 (17:25)
[2024-04-20] MEDS ORDERED: potassium Cl 40MEQ/1/2NS 520ml 520 ML IV PRN (17:25)
[2024-04-20] MEDS ORDERED: magnesium sulf-water 4G/100mL 100 ML IV PRN (17:25)
[2024-04-20] MEDS ORDERED: magnesium sulf-water 2g/50mL 50 ML IV PRN (17:25)
[2024-04-20] MEDS: ondansetron/PF 4mg/2ml inj IV PRN (19:20)
[2024-04-20] MEDS ORDERED: HYDROmorphone 2mg tablet PO PRN (20:55)
[2024-04-20] MEDS ORDERED: HYDROmorphone 1 mg/ml syringe IV PRN ×2 (20:55)
[2024-04-20] MEDS: amLODIPine 5mg tablet PO SCH (22:01)
[2024-04-21] MEDS: magnesium Cl slow-release 64mg tablet PO PRN (04:09)
[2024-04-21 06:50] VITALS: BP 130/46; PULSE 79; RESP 15; TEMP 97.9; O2SAT 97
[2024-04-21 07:14] LABS: BASOPHILS # (AUTO) 0.1 X10'3 (0-0.2); EOSINOPHILS # (AUTO) 0.1 X10'3 (0-0.9); HEMOGLOBIN 7.9 g/dl (12.0-16.0); MEAN PLATELET VOLUME 6.3 FL (7.4-10.4); MONOCYTES # (AUTO) 0.7 X10'3 (0-0.9)
[2024-04-21 07:17] LABS: BASOPHILS % (AUTO) 0.8 % (0-1); EOSINOPHILS % (AUTO) 0.8 % (0-6); LYMPHOCYTES # (AUTO) 0.4 X10'3 (1.1-4.8); MEAN CORPUSCULAR HEMOGLOBIN 27.7 PG (27.0-31.0); MEAN CORPUSCULAR HGB CONC 31.8 g/dL (33.0-36.5); MEAN CORPUSCULAR VOLUME 87.2 FL (78-98); NEUTROPHILS # (AUTO) 12.9 X10'3 (1.8-7.7); NEUTROPHILS % (AUTO) 90.4 % (42-75); PLATELET COUNT 661 X10'3 (140-440); RED BLOOD COUNT 2.87 X10'6 (4.20-5.60); RED CELL DISTRIBUTION WIDTH 18.4 % (11.5-14.5); WHITE BLOOD COUNT 14.2 X10'3 (4.5-11.0)
[2024-04-21 07:33] LABS: ALBUMIN 1.5 G/DL (3.4-5.0); ANION GAP 5 (8-16); BLOOD UREA NITROGEN 14 MG/DL (7-18); BUN/CREATININE RATIO 28.6 (10.0-20.0); CALCIUM 8.3 MG/DL (8.5-10.1); CHLORIDE 108 MMOL/L (99-107); CREATININE 0.49 MG/DL (0.40-0.90); GLUCOSE 99 MG/DL (70-104); POTASSIUM 4.5 MMOL/L (3.5-5.1); SODIUM 139 MMOL/L (135-145); TOTAL CARBON DIOXIDE 26.1 MMOL/L (24-32); eCRCL 62 ML/MIN; eGFR > 90 ML/MIN
[2024-04-21 08:00] VITALS: RESP 15; O2SAT 97
[2024-04-21 09:09] LABS: PLATELET ESTIMATE INCREASED
[2024-04-21 09:10] LABS: ANISOCYTOSIS 2+; ELLIPTOCYTES FEW; POLYCHROMASIA FEW
[2024-04-21 10:00] VITALS: BP 131/52; PULSE 73; RESP 16; TEMP 97.8; O2SAT 96
[2024-04-21] MEDS: HYDROmorphone 2mg tablet PO PRN (10:44)
[2024-04-21] MEDS ORDERED: CEFD300C3 PO (12:39)
[2024-04-21] MEDS ORDERED: FLUC100T64 PO (12:39)
[2024-04-21 16:48] VITALS: RESP 17
[2024-04-21] MEDS ORDERED: lactose-reduced food (Ensure High Protein) 237ml bottle PO SCH (17:30)
== END 2024-04-21 16:58 | disposition home health service (06) | DRG 698 ==
LOC: ER 10:47 → ED HOLD 14:30 → ORTHO 4S 17:49
PROVIDERS: ADMIT Internal Medicine; ATTEND Internal Medicine
PROC: B32T1ZZ Computerized Tomography (CT Scan) of Left Pulmonary Artery using Low Osmolar Contrast (ICD-10-PCS; principal; 2024-04-17)
PROC: B3201ZZ Computerized Tomography (CT Scan) of Thoracic Aorta using Low Osmolar Contrast (ICD-10-PCS; 2024-04-17)
PROC: B32S1ZZ Computerized Tomography (CT Scan) of Right Pulmonary Artery using Low Osmolar Contrast (ICD-10-PCS; 2024-04-17)
DX: T83.511A Infection and inflammatory reaction due to indwelling urethral catheter, initial encounter (principal); A41.9 Sepsis, unspecified organism; G93.41 Metabolic encephalopathy; E87.1 Hypo-osmolality and hyponatremia; N39.0 Urinary tract infection, site not specified; E86.0 Dehydration; E87.5 Hyperkalemia; E78.00 Pure hypercholesterolemia, unspecified; I10 Essential (primary) hypertension; D75.839 Thrombocytosis, unspecified; D63.8 Anemia in other chronic diseases classified elsewhere; Y84.6 Urinary catheterization as the cause of abnormal reaction of the patient, or of later complication, without mention of misadventure at the time of the procedure; Z88.1 Allergy status to other antibiotic agents; Z79.899 Other long term (current) drug therapy; Y92.89 Other specified places as the place of occurrence of the external cause; Z90.710 Acquired absence of both cervix and uterus; Z85.41 Personal history of malignant neoplasm of cervix uteri; Z85.44 Personal history of malignant neoplasm of other female genital organs
CPT/HCPCS: 36415; 71045; 71275; 80048; 81001; 83540; 83550; 83605; 83735; 84145; 84484; 85007; 85008; 85025; 85379; 87040; 87077; 87081; 87088; 93005; 96374; 96375; 97161; 97530; 97535; 99285; A4615; A6209; A6212; A6213; G0378; J0696; J1170; J1200; J2405; J2765; J7030; Q9967

== ENCOUNTER 2024-08-26 22:20 | Inpatient (IN) | payer MEDICARE, MEDICAID ==
[~2024-08-26] VITALS: Ht 154.9 cm; Wt 76.0 kg
[~2024-08-26 22:20] MED LIST changes: +AMOX-419 PO; -CEFU500T66 PO; +HYDR500C2 PO; +LACT1CAP26 PO; +LACT1CAP74 PO; +LEVO50TA8 PO; +MAGN100T PO; +MELA5CAP PO
[2024-08-26] MEDS ORDERED: CefTRIAXone/D5W-Rocephin 1gm 50 ML IV ONE (22:40)
[2024-08-26 22:54] LABS: BILIRUBIN,URINE NEGATIVE (Neg); CLARITY,URINE CLEAR (Clear); COLOR,URINE YELLOW (Yellow); GLUCOSE, URINE NEGATIVE (Neg); KETONES,URINE NEGATIVE (Neg); LEUKOCYTE ESTERASE ,URINE TRACE (Neg); NITRITES, URINE NEGATIVE (Neg); OCCULT BLOOD,URINE SMALL (Neg); PH,URINE 5.5 (4.8-8.0); PROTEIN,URINE TRACE mg/dl (Neg); UROBILINOGEN,URINE 0.2 E.U/dL (0.2-1.0)
[2024-08-26 23:02] LABS: UA COLLECTION TYPE FOLEY CATH
[2024-08-26 23:06] LABS: BACTERIA,URINE 2+ /HPF (Neg)
[2024-08-26 23:07] LABS: SQUAMOUS EPITHELIAL CELL,UR NONE SEEN /LPF (FEW)
[2024-08-26] MEDS: normal saline 1000ML IV soln IVB ONE ×2 (23:20→23:26)
[2024-08-26] MEDS: morphine 4 MG/ML inj SYRINge IV ONE (23:21)
[2024-08-26] MEDS: ondansetron/PF 4mg/2ml inj IV ONE (23:37)
[2024-08-27 00:44] LABS: BASOPHILS % (AUTO) 0.7 % (0-1); EOSINOPHILS % (AUTO) 0.6 % (0-6); HEMATOCRIT 27.1 % (35.0-45.0); HEMOGLOBIN 9.2 g/dl (12.0-16.0); LYMPHOCYTES # (AUTO) 0.2 X10'3 (1.1-4.8); LYMPHOCYTES % (AUTO) 4.3 % (21-51); MEAN CORPUSCULAR HGB CONC 34.1 g/dL (33.0-36.5); MEAN CORPUSCULAR VOLUME 93.8 FL (78-98); MEAN PLATELET VOLUME 5.9 FL (7.4-10.4); MONOCYTES # (AUTO) 0.5 X10'3 (0-0.9); MONOCYTES % (AUTO) 11.5 % (2-12); NEUTROPHILS # (AUTO) 3.9 X10'3 (1.8-7.7); NEUTROPHILS % (AUTO) 82.9 % (42-75); PLATELET COUNT 467 X10'3 (140-440); RED BLOOD COUNT 2.89 X10'6 (4.20-5.60); RED CELL DISTRIBUTION WIDTH 27.4 % (11.5-14.5); WHITE BLOOD COUNT 4.7 X10'3 (4.5-11.0)
[2024-08-27 00:59] LABS: ALANINE AMINOTRANSFERASE 12 U/L (12-78); ALBUMIN 1.5 G/DL (3.4-5.0); ALBUMIN/GLOBULIN RATIO 0.5 (1.1-1.5); ALKALINE PHOSPHATASE 91 IU/L (46-116); ANION GAP 3 (8-16); ASPARTATE AMINO TRANSFERASE 7 U/L (10-37); BILIRUBIN,TOTAL 0.4 MG/DL (0.1-1.0); BLOOD UREA NITROGEN 20 MG/DL (7-18); BUN/CREATININE RATIO 33.9 (10.0-20.0); CALCIUM 7.7 MG/DL (8.5-10.1); CHLORIDE 102 MMOL/L (99-107); CREATININE 0.59 MG/DL (0.40-0.90); GLUCOSE 113 MG/DL (70-104); LIPASE 21 U/L (16-77); POTASSIUM 4.7 MMOL/L (3.5-5.1); SODIUM 133 MMOL/L (135-145); TOTAL PROTEIN 4.8 G/DL (6.4-8.2); eCRCL 54 ML/MIN; eGFR > 90 ML/MIN
[2024-08-27 01:06] LABS: ANISOCYTOSIS 3+; MICROCYTOSIS 2+; PLATELET ESTIMATE INCREASED
[2024-08-27] MEDS ORDERED: acetaminophen 325mg tablet PO PRN (01:50)
[2024-08-27] MEDS ORDERED: potassium Cl 20 mEq SR tablet PO PRN ×2 (01:50)
[2024-08-27] MEDS ORDERED: mag hydrox/Alum hydrox/simeth 30ml oral suspension PO PRN (01:50)
[2024-08-27] MEDS ORDERED: magnesium sulf-water 4G/100mL 100 ML IV PRN (01:50)
[2024-08-27] MEDS ORDERED: magnesium sulf-water 2g/50mL 50 ML IV PRN (01:50)
[2024-08-27] MEDS ORDERED: ondansetron/PF 4mg/2ml inj IV PRN (01:50)
[2024-08-27] MEDS ORDERED: potassium Cl 40MEQ/1/2NS 520ml 520 ML IV PRN (01:50)
[2024-08-27] MEDS ORDERED: magnesium hydroxide 30ml (MOM) UD suspension PO PRN (01:50)
[2024-08-27] MEDS ORDERED: magnesium Cl slow-release 64mg tablet PO PRN (01:50)
[2024-08-27] MEDS ORDERED: hydrALAZINE 20mg/ml inj. IV PRN (02:50)
[2024-08-27] MEDS: normal saline 1000ml 1,000 ML IV SCH (03:30)
[2024-08-27 03:35] VITALS: BP 147/66; PULSE 101; RESP 17; TEMP 97; O2SAT 93
[2024-08-27 07:40] LABS: PHOSPHORUS 4.3 MG/DL (2.3-4.5)
[2024-08-27 07:49] LABS: MAGNESIUM 2.1 MG/DL (1.5-2.4)
[2024-08-27] MEDS: K and/or MAG REPLACEMENT MC SCH (08:00)
[2024-08-27] MEDS ORDERED: vancomycin inj 1,000 MG in normal saline 250ml IV soln 250 ML IV ONE (08:45)
[2024-08-27] MEDS: enoxaparin 40mg/0.4ml syringe SUBCUT SCH (09:45)
[2024-08-27 11:00] VITALS: BP 153/52; PULSE 99; RESP 19; TEMP 97.5; O2SAT 92
[2024-08-27] MEDS: vancomycin/NS 1 GM ADD-VANTAGE 250 ML IV SCH (11:36)
[2024-08-27 18:00] VITALS: BP 149/54; PULSE 94; RESP 18; TEMP 97.5; O2SAT 93
[2024-08-27 22:00] VITALS: BP 141/44; PULSE 98; RESP 16; TEMP 97.6; O2SAT 96
[2024-08-27] MEDS: diatr meglu/diatrizoate 30ml oral sol.-(3 dose) bottle PO SCH (23:26)
[2024-08-28 06:00] VITALS: BP 132/51; PULSE 105; RESP 15; TEMP 98.7; O2SAT 95
[2024-08-28 06:21] LABS: BASOPHILS % (AUTO) 0.6 % (0-1); EOSINOPHILS % (AUTO) 0.6 % (0-6); HEMATOCRIT 26.2 % (35.0-45.0); HEMOGLOBIN 8.7 g/dl (12.0-16.0); LYMPHOCYTES # (AUTO) 0.2 X10'3 (1.1-4.8); LYMPHOCYTES % (AUTO) 3.3 % (21-51); MEAN CORPUSCULAR HEMOGLOBIN 31.5 PG (27.0-31.0); MEAN CORPUSCULAR HGB CONC 33.1 g/dL (33.0-36.5); MEAN CORPUSCULAR VOLUME 95.2 FL (78-98); MEAN PLATELET VOLUME 6.1 FL (7.4-10.4); MONOCYTES # (AUTO) 0.5 X10'3 (0-0.9); MONOCYTES % (AUTO) 9.2 % (2-12); NEUTROPHILS # (AUTO) 4.8 X10'3 (1.8-7.7); NEUTROPHILS % (AUTO) 86.3 % (42-75); PLATELET COUNT 433 X10'3 (140-440); RED BLOOD COUNT 2.75 X10'6 (4.20-5.60); WHITE BLOOD COUNT 5.6 X10'3 (4.5-11.0)
[2024-08-28 06:51] LABS: ALANINE AMINOTRANSFERASE 8 U/L (12-78); ALBUMIN 1.3 G/DL (3.4-5.0); ALBUMIN/GLOBULIN RATIO 0.4 (1.1-1.5); ALKALINE PHOSPHATASE 96 IU/L (46-116); ANION GAP 7 (8-16); ASPARTATE AMINO TRANSFERASE 14 U/L (10-37); BILIRUBIN,TOTAL 0.6 MG/DL (0.1-1.0); BLOOD UREA NITROGEN 13 MG/DL (7-18); CALCIUM 7.5 MG/DL (8.5-10.1); CHLORIDE 106 MMOL/L (99-107); CREATININE 0.52 MG/DL (0.40-0.90); GLUCOSE 72 MG/DL (70-104); POTASSIUM 4.4 MMOL/L (3.5-5.1); SODIUM 136 MMOL/L (135-145); TOTAL CARBON DIOXIDE 22.6 MMOL/L (24-32); TOTAL PROTEIN 4.6 G/DL (6.4-8.2); eCRCL 61 ML/MIN; eGFR > 90 ML/MIN
[2024-08-28] MEDS ORDERED: iohexol 300mg/ml 100ml inj. ONE (09:53)
[2024-08-28 10:00] VITALS: BP 153/61; PULSE 100; RESP 19; TEMP 97.9; O2SAT 96
[2024-08-28] MEDS: furosemide 20 MG/2 ML vial IV ONE (13:02)
[2024-08-28] MEDS ORDERED: non-formulary drug (Polyethylene Glycol 3350 (Miralax) 17 GM) PO PRN (17:35)
[2024-08-28 18:00] VITALS: BP 158/58; PULSE 108; RESP 18; TEMP 98.6; O2SAT 98
[2024-08-28 20:00] VITALS: RESP 16; O2SAT 97
[2024-08-28] MEDS ORDERED: MAGNESIUM GLYCINATE PO SCH (21:00)
[2024-08-28] MEDS: Melatonin 3mg tablet PO SCH (21:43)
[2024-08-28] MEDS: metoprolol tartrate 50mg tablet PO SCH (21:44)
[2024-08-28] MEDS: gabapentin 100mg capsule PO SCH (21:44)
[2024-08-28] MEDS: docusate sod 100mg capsule PO SCH (21:44)
[2024-08-28 22:00] VITALS: BP 165/63; PULSE 113; RESP 16; TEMP 100.1; O2SAT 97
[2024-08-28] MEDS: VANCOMYCIN LEVEL IV ONE (22:30)
[2024-08-29] MEDS: HYDROcodone/acetaminophen 5mg/325mg tablet PO PRN (04:43)
[2024-08-29 06:00] VITALS: BP 155/47; PULSE 95; RESP 15; TEMP 97.7; O2SAT 98
[2024-08-29 08:00] VITALS: RESP 15; O2SAT 98
[2024-08-29] MEDS ORDERED: LACTOBACILLUS RHAMNOSUS GG PO SCH (08:00)
[2024-08-29 08:03] LABS: BASOPHILS % (AUTO) 0.4 % (0-1); EOSINOPHILS # (AUTO) 0.1 X10'3 (0-0.9); EOSINOPHILS % (AUTO) 0.7 % (0-6); HEMATOCRIT 24.2 % (35.0-45.0); HEMOGLOBIN 7.8 g/dl (12.0-16.0); LYMPHOCYTES # (AUTO) 0.3 X10'3 (1.1-4.8); LYMPHOCYTES % (AUTO) 3.5 % (21-51); MEAN CORPUSCULAR HEMOGLOBIN 31.2 PG (27.0-31.0); MEAN CORPUSCULAR HGB CONC 32.4 g/dL (33.0-36.5); MEAN CORPUSCULAR VOLUME 96.2 FL (78-98); MONOCYTES # (AUTO) 0.6 X10'3 (0-0.9); NEUTROPHILS # (AUTO) 7.3 X10'3 (1.8-7.7); NEUTROPHILS % (AUTO) 88.4 % (42-75); PLATELET COUNT 400 X10'3 (140-440); RED BLOOD COUNT 2.52 X10'6 (4.20-5.60); RED CELL DISTRIBUTION WIDTH 27.5 % (11.5-14.5); WHITE BLOOD COUNT 8.2 X10'3 (4.5-11.0)
[2024-08-29 08:23] LABS: ALANINE AMINOTRANSFERASE 8 U/L (12-78); ALBUMIN 1.3 G/DL (3.4-5.0); ALBUMIN/GLOBULIN RATIO 0.4 (1.1-1.5); ALKALINE PHOSPHATASE 89 IU/L (46-116); ANION GAP 2 (8-16); ASPARTATE AMINO TRANSFERASE 9 U/L (10-37); BILIRUBIN,TOTAL 0.3 MG/DL (0.1-1.0); BLOOD UREA NITROGEN 9 MG/DL (7-18); BUN/CREATININE RATIO 22.5 (10.0-20.0); CALCIUM 7.7 MG/DL (8.5-10.1); CHLORIDE 107 MMOL/L (99-107); GLUCOSE 97 MG/DL (70-104); POTASSIUM 3.6 MMOL/L (3.5-5.1); SODIUM 137 MMOL/L (135-145); TOTAL CARBON DIOXIDE 27.8 MMOL/L (24-32); TOTAL PROTEIN 4.2 G/DL (6.4-8.2); eCRCL 79 ML/MIN; eGFR > 90 ML/MIN
[2024-08-29 10:00] VITALS: BP 145/57; PULSE 81; RESP 16; TEMP 98.2; O2SAT 99
[2024-08-29] MEDS: levoTHYROXINE 25mcg tablet PO SCH (10:24)
[2024-08-29] MEDS: multivitamins, therapeutics tablet PO SCH (10:25)
[2024-08-29] MEDS: lisinopril 2.5mg tablet PO SCH (10:27)
[2024-08-29] MEDS: amLODIPine 5mg tablet PO SCH (10:27)
[2024-08-29] MEDS: furosemide 20 MG/2 ML vial IV SCH (10:30)
[2024-08-29 18:00] VITALS: BP 130/44; PULSE 72; RESP 16; TEMP 97.4; O2SAT 94
[2024-08-29 19:55] LABS: HEMATOCRIT 25.7 % (35.0-45.0); HEMOGLOBIN 8.6 g/dl (12.0-16.0); MEAN CORPUSCULAR HEMOGLOBIN 31.7 PG (27.0-31.0); MEAN CORPUSCULAR HGB CONC 33.4 g/dL (33.0-36.5); MEAN CORPUSCULAR VOLUME 94.9 FL (78-98); MEAN PLATELET VOLUME 6.1 FL (7.4-10.4); PLATELET COUNT 454 X10'3 (140-440); RED BLOOD COUNT 2.71 X10'6 (4.20-5.60); RED CELL DISTRIBUTION WIDTH 27.4 % (11.5-14.5); WHITE BLOOD COUNT 8.5 X10'3 (4.5-11.0)
[2024-08-29 20:11] LABS: POIKILOCYTOSIS 1+
[2024-08-29 20:12] LABS: ANISOCYTOSIS 2+; ELLIPTOCYTES FEW
[2024-08-29 22:00] VITALS: BP 134/38; PULSE 85; RESP 16; TEMP 99.1; O2SAT 96
[2024-08-30 06:00] VITALS: BP 117/56; PULSE 85; RESP 18; TEMP 98.2; O2SAT 92
[2024-08-30 06:07] LABS: BASOPHILS # (AUTO) 0.1 X10'3 (0-0.2); BASOPHILS % (AUTO) 0.9 % (0-1); EOSINOPHILS # (AUTO) 0.1 X10'3 (0-0.9); EOSINOPHILS % (AUTO) 0.9 % (0-6); HEMATOCRIT 23.9 % (35.0-45.0); HEMOGLOBIN 7.9 g/dl (12.0-16.0); LYMPHOCYTES # (AUTO) 0.3 X10'3 (1.1-4.8); LYMPHOCYTES % (AUTO) 3.9 % (21-51); MEAN CORPUSCULAR HEMOGLOBIN 31.5 PG (27.0-31.0); MEAN CORPUSCULAR HGB CONC 33.1 g/dL (33.0-36.5); MEAN CORPUSCULAR VOLUME 95.4 FL (78-98); MEAN PLATELET VOLUME 6.1 FL (7.4-10.4); MONOCYTES # (AUTO) 0.4 X10'3 (0-0.9); MONOCYTES % (AUTO) 5.7 % (2-12); NEUTROPHILS # (AUTO) 6.2 X10'3 (1.8-7.7); NEUTROPHILS % (AUTO) 88.6 % (42-75); PLATELET COUNT 393 X10'3 (140-440); RED CELL DISTRIBUTION WIDTH 27.1 % (11.5-14.5); WHITE BLOOD COUNT 6.9 X10'3 (4.5-11.0)
[2024-08-30 06:27] LABS: ALANINE AMINOTRANSFERASE 7 U/L (12-78); ALBUMIN 1.2 G/DL (3.4-5.0); ALBUMIN/GLOBULIN RATIO 0.4 (1.1-1.5); ALKALINE PHOSPHATASE 84 IU/L (46-116); ANION GAP 4 (8-16); ASPARTATE AMINO TRANSFERASE 13 U/L (10-37); BILIRUBIN,TOTAL 0.3 MG/DL (0.1-1.0); BLOOD UREA NITROGEN 7 MG/DL (7-18); BUN/CREATININE RATIO 13.7 (10.0-20.0); CALCIUM 7.6 MG/DL (8.5-10.1); CHLORIDE 104 MMOL/L (99-107); CREATININE 0.51 MG/DL (0.40-0.90); GLUCOSE 109 MG/DL (70-104); POTASSIUM 3.6 MMOL/L (3.5-5.1); SODIUM 134 MMOL/L (135-145); TOTAL PROTEIN 4.2 G/DL (6.4-8.2); eCRCL 62 ML/MIN; eGFR > 90 ML/MIN
[2024-08-30 10:00] VITALS: BP 120/44; PULSE 79; RESP 16; TEMP 97.4; O2SAT 98
[2024-08-30 18:00] VITALS: BP 127/42; PULSE 88; RESP 16; TEMP 97.7; O2SAT 95
[2024-08-30 22:00] VITALS: BP 149/47; PULSE 89; RESP 17; TEMP 99.2; O2SAT 96
[2024-08-31 05:25] LABS: BASOPHILS # (AUTO) 0.1 X10'3 (0-0.2); BASOPHILS % (AUTO) 0.7 % (0-1); EOSINOPHILS # (AUTO) 0.1 X10'3 (0-0.9); EOSINOPHILS % (AUTO) 0.9 % (0-6); HEMATOCRIT 23.2 % (35.0-45.0); HEMOGLOBIN 7.6 g/dl (12.0-16.0); LYMPHOCYTES # (AUTO) 0.3 X10'3 (1.1-4.8); LYMPHOCYTES % (AUTO) 4.1 % (21-51); MEAN CORPUSCULAR HGB CONC 32.7 g/dL (33.0-36.5); MEAN CORPUSCULAR VOLUME 94.8 FL (78-98); MEAN PLATELET VOLUME 6.2 FL (7.4-10.4); MONOCYTES # (AUTO) 0.7 X10'3 (0-0.9); MONOCYTES % (AUTO) 9.7 % (2-12); NEUTROPHILS # (AUTO) 5.9 X10'3 (1.8-7.7); NEUTROPHILS % (AUTO) 84.6 % (42-75); PLATELET COUNT 402 X10'3 (140-440); RED BLOOD COUNT 2.45 X10'6 (4.20-5.60); RED CELL DISTRIBUTION WIDTH 26.5 % (11.5-14.5)
[2024-08-31 05:57] LABS: ALANINE AMINOTRANSFERASE 9 U/L (12-78); ALBUMIN 1.1 G/DL (3.4-5.0); ALBUMIN/GLOBULIN RATIO 0.4 (1.1-1.5); ALKALINE PHOSPHATASE 83 IU/L (46-116); ANION GAP 4 (8-16); ASPARTATE AMINO TRANSFERASE 12 U/L (10-37); BILIRUBIN,TOTAL 0.3 MG/DL (0.1-1.0); BLOOD UREA NITROGEN 8 MG/DL (7-18); BUN/CREATININE RATIO 15.4 (10.0-20.0); CALCIUM 7.1 MG/DL (8.5-10.1); CHLORIDE 104 MMOL/L (99-107); CREATININE 0.52 MG/DL (0.40-0.90); GLUCOSE 106 MG/DL (70-104); POTASSIUM 3.3 MMOL/L (3.5-5.1); SODIUM 135 MMOL/L (135-145); TOTAL CARBON DIOXIDE 26.6 MMOL/L (24-32); eCRCL 61 ML/MIN; eGFR > 90 ML/MIN
[2024-08-31 06:00] VITALS: BP 136/50; PULSE 84; RESP 18; TEMP 98.3; O2SAT 96
[2024-08-31] MEDS ORDERED: POTA-207 PO (09:52)
[2024-08-31] MEDS ORDERED: FURO20TA4 PO (09:52)
[2024-08-31 10:00] VITALS: BP 122/39; PULSE 79; RESP 16; TEMP 98.2; O2SAT 96
[2024-08-31 10:56] VITALS: BP 132/48; PULSE 76; RESP 15; TEMP 98.4
[2024-08-31] MEDS: potassium Cl 20 mEq SR tablet PO ONE (11:19)
[2024-08-31 11:44] VITALS: BP 118/96; PULSE 76; RESP 14; TEMP 98.6
[2024-08-31 11:56] VITALS: BP 119/96; PULSE 74; RESP 15; TEMP 98.4
[2024-08-31] MEDS: heparin sodium, porcine/PF 100unit/ml 5ML syringe IV ONE (16:03)
== END 2024-08-31 16:30 | disposition home health service (06) | DRG 393 ==
LOC: ER 22:21 → ED HOLD 08-27 01:51 → ORTHO 4S 08-27 03:37
PROVIDERS: ADMIT Internal Medicine; ATTEND Family Medicine
PROC: 30233N1 Transfusion of Nonautologous Red Blood Cells into Peripheral Vein, Percutaneous Approach (ICD-10-PCS; principal; 2024-08-31)
DX: K91.89 Other postprocedural complications and disorders of digestive system (principal); E43 Unspecified severe protein-calorie malnutrition; J96.00 Acute respiratory failure, unspecified whether with hypoxia or hypercapnia; K56.7 Ileus, unspecified; N32.1 Vesicointestinal fistula; E87.6 Hypokalemia; D63.8 Anemia in other chronic diseases classified elsewhere; N30.90 Cystitis, unspecified without hematuria; E78.00 Pure hypercholesterolemia, unspecified; E86.0 Dehydration; G62.9 Polyneuropathy, unspecified; K42.9 Umbilical hernia without obstruction or gangrene; I10 Essential (primary) hypertension; C51.9 Malignant neoplasm of vulva, unspecified; N28.9 Disorder of kidney and ureter, unspecified; Z93.3 Colostomy status; Z79.899 Other long term (current) drug therapy; Z90.49 Acquired absence of other specified parts of digestive tract; Z90.710 Acquired absence of both cervix and uterus; Z68.31 Body mass index [BMI] 31.0-31.9, adult
CPT/HCPCS: 36415; 36430; 71045; 74176; 80053; 80202; 81001; 82948; 83690; 83735; 84100; 84145; 85008; 85025; 85027; 86885; 86900; 86901; 86922; 87081; 87088; 88302; 97110; 97161; 97530; 97535; 99285; A4421; A4615; A4649; A6212; A6213; A6223; A6250; G0378; J1642; J1650; J1940; J2270; J2405; J3370; J7030; P9016; Q9963; Q9967